=== PATIENT | female | born 1970 | race Two or more races ===

== ENCOUNTER 2020-11-02 10:01 | Inpatient (IN) | payer MEDICAID, OTHER ==
[~2020-11-02] VITALS: Ht 157.5 cm; Wt 81.6 kg
[2020-11-02] MEDS ORDERED: ACETAMINOPHEN 325 MG TAB PO ONE (10:30)
[2020-11-02] MEDS ORDERED: LORazepam 2MG/ML-1ML VIAL IV ONE (10:30)
[2020-11-02] MEDS ORDERED: SODIUM CHLORIDE 0.9% 1,000 ML IV ONE ×2 (10:30)
[2020-11-02 11:04] LABS: Basophils # (auto) 0 10 ^3/uL (0-0.2); Eosinophils # (auto) 1.2 10 ^3/uL (0-0.8); Hematocrit 42.6 % (36.0-46.0); Hemoglobin 14.3 g/dL (12.2-16.2); Lymphocytes # (auto) 1.2 10 ^3/uL (0.4-5.4); Mean Corpuscular Hemoglobin 27.9 pg (28.0-32.0); Mean Corpuscular Hgb Conc. 33.5 g/dL (32.0-36.0); Mean Corpuscular Volume 83.4 fL (80.0-100.0); Monocytes # (auto) 1.2 10 ^3/uL (0-1.3); Neutrophils # (auto) 11.2 10 ^3/uL (1.6-8.6); Platelet Count (auto) 270 10^3/uL (140-450); Red Blood Cells 5.11 10^6/uL (4.0-5.20); Red Cell Distribution Width 14.1 % (11.8-14.3); White Blood Cell 14.7 10^3/uL (4.4-10.8)
[2020-11-02 11:19] LABS: Albumin 3.6 g/dL (3.4-5.0); Calcium 9.1 mg/dL (8.5-10.1); Potassium 3.9 mmol/L (3.5-5.1)
[2020-11-02 11:22] LABS: BUN/Creatinine Ratio 16.5; Bilirubin, Total 0.8 mg/dL (0.2-1.0); Total Protein 8.4 g/dL (6.4-8.2)
[2020-11-02] MEDS ORDERED: metroNIDAZOLE 500MG/100ML 100 ML IV ONE (11:30)
[2020-11-02] MEDS ORDERED: cefTRIAXone 1GM/50ML D5W 50 ML IV ONE (11:30)
[2020-11-02] MEDS ORDERED: MORPHINE SULF INJ 2 MG/ML SYRINGE 1ML IV PRN ×2 (12:15)
[2020-11-02] MEDS ORDERED: NITROGLYCERIN 0.4 MG SL TAB SL PRN (12:15)
[2020-11-02] MEDS: D5W/SOD CHL 0.45% 1,000 ML IV SCH ×2 (12:15→20:15)
[2020-11-02] MEDS: metroNIDAZOLE 500MG/100ML 100 ML IV SCH ×2 (14:00→21:52)
[2020-11-02 14:16] LABS: Urine Bacteria FEW /hpf (None Seen); Urine Blood Negative /uL (Negative); Urine Mucus FEW (None Seen); Urine WBC <1 /hpf (0 - 5)
[2020-11-02] MEDS: ACETAMINOPHEN 500 MG TAB PO PRN ×2 (15:28→19:34)
[2020-11-02] MEDS ORDERED: ACETAMINOPHEN 500 MG TAB PO ONE (16:45)
[2020-11-03] MEDS: HYDROcodone-ACET 5/325MG TAB PO PRN ×4 (01:43→22:23)
[2020-11-03] MEDS: ACETAMINOPHEN 500 MG TAB PO PRN (02:07)
[2020-11-03] MEDS ORDERED: IBUPROFEN 600 MG TAB PO ONE (03:15)
[2020-11-03] MEDS: D5W/SOD CHL 0.45% 1,000 ML IV SCH ×3 (03:30→22:23)
[2020-11-03] MEDS: metroNIDAZOLE 500MG/100ML 100 ML IV SCH ×3 (06:11→22:24)
[2020-11-03 07:06] LABS: Calcium 8.1 mg/dL (8.5-10.1); Potassium 3.2 mmol/L (3.5-5.1)
[2020-11-03 07:08] LABS: Basophils # (auto) 0 10 ^3/uL (0-0.2); Basophils % (auto) 0.3 % (0.0-2.0); Eosinophils # (auto) 0 10 ^3/uL (0-0.8); Hematocrit 37.9 % (36.0-46.0); Hemoglobin 13.2 g/dL (12.2-16.2); Lymphocytes # (auto) 0.9 10 ^3/uL (0.4-5.4); Lymphocytes % (auto) 8.6 % (10.0-50.0); Mean Corpuscular Hemoglobin 28.8 pg (28.0-32.0); Mean Corpuscular Hgb Conc. 34.9 g/dL (32.0-36.0); Mean Corpuscular Volume 82.5 fL (80.0-100.0); Monocytes # (auto) 0.3 10 ^3/uL (0-1.3); Monocytes % (auto) 2.7 % (0.0-12.0); Neutrophils # (auto) 9.4 10 ^3/uL (1.6-8.6); Neutrophils % (auto) 88.4 % (37.0-80.0); Platelet Count (auto) 248 10^3/uL (140-450); Red Blood Cells 4.59 10^6/uL (4.0-5.20); Red Cell Distribution Width 13.6 % (11.8-14.3); White Blood Cell 10.6 10^3/uL (4.4-10.8)
[2020-11-03 07:09] LABS: Albumin 2.8 g/dL (3.4-5.0); BUN/Creatinine Ratio 11.6
[2020-11-03 07:12] LABS: Bilirubin, Total 0.5 mg/dL (0.2-1.0); Total Protein 6.7 g/dL (6.4-8.2)
[2020-11-03] MEDS: cefTRIAXone 1GM/50ML D5W 50 ML IV SCH (08:54)
[2020-11-03 15:38] VITALS: BP 107/66
[2020-11-03 16:36] VITALS: BP 105/66
[2020-11-03 16:59] LABS: Alcohol, Urine < 3.0 mg/dL (0-10); Amphetamine Screen, Urine NEGATIVE (NEGATIVE); Barbiturate Scree,Urine NEGATIVE (NEGATIVE); Benzodiazephine Screen, Urine NEGATIVE (NEGATIVE); Cannabinoid Screen, Urine NEGATIVE (NEGATIVE); Cocaine Screen, Urine NEGATIVE (NEGATIVE); Opiate Scree,Urine POSITIVE (NEGATIVE); Phencyclidine Screen, Urine NEGATIVE (NEGATIVE)
[2020-11-03] MEDS: ONDANSETRON HCL 4 MG/2 ML VIAL IV PRN ×2 (17:16→22:24)
[2020-11-03 22:00] VITALS: BP 123/73
[2020-11-04 05:00] VITALS: BP 122/87
[2020-11-04] MEDS: D5W/SOD CHL 0.45% 1,000 ML IV SCH (05:44)
[2020-11-04] MEDS: metroNIDAZOLE 500MG/100ML 100 ML IV SCH ×3 (05:44→22:38)
[2020-11-04] MEDS: ACETAMINOPHEN 500 MG TAB PO PRN (05:45)
[2020-11-04] MEDS: SUCRALFATE 1 GM/10 ML ORAL SUSP GT SCH ×4 (06:36→22:37)
[2020-11-04] MEDS: cefTRIAXone 1GM/50ML D5W 50 ML IV SCH (08:45)
[2020-11-04] MEDS: PANTOPRAZOLE 40 MG/10 ML VIAL INJ IV SCH (08:45)
[2020-11-04 08:54] VITALS: BP 128/74
[2020-11-04] MEDS ORDERED: POTASSIUM CHLORIDE 20 MEQ, LIDOCAINE 1% (LOCAL ANESTH.) 2 ML in SODIUM CHL 0.9% 100 ML IV ONE (09:30)
[2020-11-04] MEDS ORDERED: HYDROmorphone HCL 2 MG/ML VL IV PRN (09:30)
[2020-11-04] MEDS: D5W/SOD CHL 0.45%/KCL 40MEQ 1,000 ML IV SCH ×2 (11:00→22:38)
[2020-11-04 13:00] VITALS: BP 132/79
[2020-11-04] MEDS: ONDANSETRON HCL 4 MG/2 ML VIAL IV PRN (15:53)
[2020-11-04 16:56] VITALS: BP 145/96
[2020-11-04 21:00] VITALS: BP 116/72
[2020-11-05 05:00] VITALS: BP 102/57
[2020-11-05] MEDS: SUCRALFATE 1 GM/10 ML ORAL SUSP GT SCH ×2 (05:57→11:36)
[2020-11-05] MEDS: metroNIDAZOLE 500MG/100ML 100 ML IV SCH (05:57)
[2020-11-05] MEDS: ACETAMINOPHEN 500 MG TAB PO PRN (06:49)
[2020-11-05 09:00] VITALS: BP 110/73
[2020-11-05] MEDS: cefTRIAXone 1GM/50ML D5W 50 ML IV SCH (10:05)
[2020-11-05] MEDS: PANTOPRAZOLE 40 MG/10 ML VIAL INJ IV SCH (10:05)
[2020-11-05] MEDS ORDERED: ONDA-144 PO (11:22)
[2020-11-05] MEDS ORDERED: LEVO-28 PO (11:22)
[2020-11-05] MEDS ORDERED: METR500T PO (11:22)
[2020-11-05] MEDS ORDERED: PANT40TA2 PO (11:22)
[2020-11-05 13:00] VITALS: BP 127/80
[2020-11-05] MEDS: D5W/SOD CHL 0.45%/KCL 40MEQ 1,000 ML IV SCH (13:03)
[2020-11-05 13:17] VITALS: BP 110/73
== END 2020-11-05 15:30 | disposition home or self-care (01) | DRG 720 ==
LOC: ER 10:01 → EEVIPCON 10:02 → TELE 10:02 → CENTRAL 11-03 12:56 → TELE-CENTR 11-03 13:01 → CENTRAL 11-04 09:42
PROVIDERS: ADMIT Nurse Practitioner Acute Care; ATTEND Internal Medicine
DX: A41.9 Sepsis, unspecified organism (principal); K55.9 Vascular disorder of intestine, unspecified; E66.9 Obesity, unspecified; Z68.32 Body mass index [BMI] 32.0-32.9, adult; E87.6 Hypokalemia; I10 Essential (primary) hypertension; Z20.822 Contact with and (suspected) exposure to COVID-19; Z88.5 Allergy status to narcotic agent; R55 Syncope and collapse
CPT/HCPCS: 36415; 70450; 71045; 74176; 80053; 80307; 81001; 84132; 85025; 85048; 87040; 87045; 87426; 87427; 87493; 93005; 96361; 96365; 96375; C9113; G0378; J0696; J2001; J2405; J3490

== ENCOUNTER → 2021-09-20 | Outpatient (CLI) | payer BC ==
[~2021-09-20] MED LIST: LEVO-28 PO; METR500T PO; ONDA-144 PO; PANT40TA2 PO
[2021-09-20 08:34] LABS: Basophils # (auto) 0.1 10 ^3/uL (0-0.2); Basophils % (auto) 1.3 % (0.0-2.0); Eosinophils # (auto) 0.3 10 ^3/uL (0-0.8); Eosinophils % (auto) 7.1 % (0.0-7.0); Hemoglobin 13.8 g/dL (12.2-16.2); Lymphocytes # (auto) 1.5 10 ^3/uL (0.4-5.4); Lymphocytes % (auto) 34.3 % (10.0-50.0); Mean Corpuscular Hemoglobin 28.1 pg (28.0-32.0); Mean Corpuscular Hgb Conc. 33.8 g/dL (32.0-36.0); Mean Corpuscular Volume 83.1 fL (80.0-100.0); Monocytes # (auto) 0.3 10 ^3/uL (0-1.3); Monocytes % (auto) 7.1 % (0.0-12.0); Neutrophils # (auto) 2.2 10 ^3/uL (1.6-8.6); Neutrophils % (auto) 50.2 % (37.0-80.0); Nucleated Red Blood Cells % 0.1 %; Red Blood Cells 4.93 10^6/uL (4.0-5.20); Red Cell Distribution Width 13.7 % (11.8-14.3); White Blood Cell 4.3 10^3/uL (4.4-10.8)
[2021-09-20 08:43] LABS: Potassium 4.5 mmol/L (3.5-5.1)
[2021-09-20 08:48] LABS: Urine Bacteria NONE SEEN /hpf (None Seen); Urine Blood Negative /uL (Negative); Urine Mucus FEW (None Seen); Urine Specific Gravity 1.029 (1.001-1.035); Urine WBC 1 /hpf (0 - 5)
[2021-09-20 08:51] LABS: Albumin 3.8 g/dL (3.4-5.0); BUN/Creatinine Ratio 18.3; Bilirubin, Total 0.3 mg/dL (0.2-1.0); Calcium 9.4 mg/dL (8.5-10.1); Total Protein 7.8 g/dL (6.4-8.2)
== END | disposition home or self-care (01) ==
LOC: LAB 07:59
PROVIDERS: ATTEND Student in an Organized Health Care Education/Training Program
DX: R73.03 Prediabetes (principal); E78.3 Hyperchylomicronemia
CPT/HCPCS: 36415; 80053; 80061; 81001; 83036; 85025

== ENCOUNTER → 2022-04-04 | Outpatient (CLI) | payer BC ==
[2022-04-04 09:34] LABS: Basophils # (auto) 0.1 10 ^3/uL (0-0.2); Basophils % (auto) 1.2 % (0.0-2.0); Eosinophils # (auto) 0.2 10 ^3/uL (0-0.8); Eosinophils % (auto) 4.8 % (0.0-7.0); Hematocrit 43.6 % (36.0-46.0); Hemoglobin 14.6 g/dL (12.2-16.2); Lymphocytes # (auto) 1.5 10 ^3/uL (0.4-5.4); Mean Corpuscular Hemoglobin 27.8 pg (28.0-32.0); Mean Corpuscular Hgb Conc. 33.5 g/dL (32.0-36.0); Monocytes # (auto) 0.3 10 ^3/uL (0-1.3); Monocytes % (auto) 6.9 % (0.0-12.0); Neutrophils # (auto) 2.5 10 ^3/uL (1.6-8.6); Neutrophils % (auto) 54.1 % (37.0-80.0); Nucleated Red Blood Cells % 0.1 %; Red Blood Cells 5.25 10^6/uL (4.0-5.20); Red Cell Distribution Width 13.6 % (11.8-14.3); Urine Bacteria FEW /hpf (None Seen); Urine Blood Negative /uL (Negative); Urine Mucus FEW (None Seen); Urine Specific Gravity 1.022 (1.001-1.035); Urine WBC <1 /hpf (0 - 5); White Blood Cell 4.6 10^3/uL (4.4-10.8)
[2022-04-04 10:20] LABS: Albumin 3.8 g/dL (3.4-5.0); Potassium 4.2 mmol/L (3.5-5.1)
[2022-04-04 10:29] LABS: BUN/Creatinine Ratio 20.7; Bilirubin, Total 0.5 mg/dL (0.2-1.0); Calcium 9.7 mg/dL (8.5-10.1); Total Protein 8.2 g/dL (6.4-8.2)
== END | disposition home or self-care (01) ==
LOC: LAB 09:06
PROVIDERS: ATTEND Student in an Organized Health Care Education/Training Program
DX: R73.03 Prediabetes (principal); R03.0 Elevated blood-pressure reading, without diagnosis of hypertension; E78.5 Hyperlipidemia, unspecified
CPT/HCPCS: 36415; 80053; 80061; 81001; 83036; 84443; 85025